=== PATIENT | male | born 1970 | race Caucasian/White ===

== ENCOUNTER 2020-10-12 18:43 | Emergency (ER) | payer OTHER ==
[2020-10-12 18:49] VITALS: RESP 18; TEMP 98.4
--- NOTE | 2020-10-12 19:04 | ED ---
Extremity Problem HPI - General Chief complaint: Extremity Problem,Nontraumatic Stated complaint: Lft knee pain Time Seen by Provider: 10/12/20 18:52 Source: patient Mode of arrival: ambulatory Limitations: no limitations - History of Present Illness Initial comments: 50-year-old male presenting to emergency Department with chief complaint of left knee pain. Patient reports this has been ongoing for past several weeks. States he is also feeling cold in the bilateral lower leg region. States it feels like walking and "Jell-O". He denies any injury to leg. Denies any skin discoloration on lung the toes or feet. No history of diabetes. No history of PAD. Denies taking medication to alleviate the symptoms. Denies any limited range of motion the left knee. Denies any numbness or tingling. - Related Data Home Medications Medication Instructions Recorded Confirmed Aspirin EC [Ecotrin Low Dose] 81 mg PO DAILY 10/12/20 10/12/20 Lisinopril [Prinivil] 10 mg PO DAILY 10/12/20 10/12/20 Allergies Allergy/AdvReac Type Severity Reaction Status Date / Time No Known Allergies Allergy Verified 10/12/20 20:09 Review of Systems ROS Statement: Those systems with pertinent positive or pertinent negative responses have been documented in the HPI. ROS Other: All systems not noted in ROS Statement are negative. Past Medical History Past Medical History: Hypertension History of Any Multi-Drug Resistant Organisms: None Reported Past Surgical History: Hernia Repair, Tonsillectomy Past Psychological History: No Psychological Hx Reported Smoking Status: Never smoker Past Alcohol Use History: None Reported Past Drug Use History: Marijuana General Exam Limitations: no limitations General appearance: alert, in no apparent distress Head exam: Present: atraumatic, normocephalic, normal inspection Eye exam: Present: normal appearance, PERRL, EOMI Pupils: Present: normal accommodation ENT exam: Present: normal exam, normal oropharynx, mucous membranes moist, TM's normal bilaterally, normal external ear exam Neck exam: Present: normal inspection, full ROM. Absent: tenderness, lymphadenopathy, thyromegaly Respiratory exam: Present: normal lung sounds bilaterally. Absent: respiratory distress, wheezes, rales Cardiovascular Exam: Present: regular rate, normal rhythm, normal heart sounds. Absent: systolic murmur, diastolic murmur Extremities exam: Present: normal inspection (No signs of limb ischemia in bilateral lower extremities. There is no skin discoloration or abnormal hair patterns along the left lower stomach. Sensation intact.), full ROM (Full range of motion of left knee), tenderness (Mild tenderness along the anterior patellar region of the left knee.), normal capillary refill, other (+2 dorsalis pedis and posterior tibialis. Strong palpable pulses bilateral lower extremities.). Absent: pedal edema, joint swelling, calf tenderness Back exam: Present: normal inspection, full ROM. Absent: tenderness, CVA tenderness (R), CVA tenderness (L), muscle spasm, paraspinal tenderness, vertebral tenderness Neurological exam: Present: alert, oriented X3, normal gait Psychiatric exam: Present: normal affect, normal mood. Absent: depressed, agitated Skin exam: Present: warm, dry, intact, normal color Course Vital Signs 10/12/20 10/12/20 10/12/20 18:47 20:04 20:35 Temperature 98.4 F 98.4 F Pulse Rate 63 75 58 L Respiratory 18 18 18 Rate Blood Pressure 132/77 142/92 128/89 O2 Sat by Pulse 98 99 97 Oximetry Medical Decision Making - Medical Decision Making 50-year-old male presenting to the emergency department with a chief complaint of left knee pain. On physical examination, there are no signs of any limb ischemia in the left lower extremity. His skin is warm but he subjectively feels that it is cold in bilateral lower legs. He has strong palpable pulses in bilateral upper extremities. He has full range of motion of the left knee with only mild tenderness along the anterior lateral aspect in the infrapatellar region. X-ray was reviewed with , along with laboratory results which show mild hyperkalemia of 5.3. EKG is showing sinus rhythm. Patient was advised to follow with an ignition specialist. Strict return parameters were thoroughly discussed patient is resting agreeable. Case discussed with physician. - Lab Data Result diagrams: 10/12/20 19:12 10/12/20 19:12 Lab Results 10/12/20 10/12/20 Range/Units 19:12 19:12 WBC 7.2 (3.8-10.6) k/uL RBC 4.83 (4.30-5.90) m/uL Hgb 13.6 (13.0-17.5) gm/dL Hct 40.9 (39.0-53.0) % MCV 84.8 (80.0-100.0) fL MCH 28.1 (25.0-35.0) pg MCHC 33.1 (31.0-37.0) g/dL RDW 14.1 (11.5-15.5) % Plt Count 219 (150-450) k/uL MPV 6.9 Neutrophils % 68 % Lymphocytes % 22 % Monocytes % 4 % Eosinophils % 3 % Basophils % 1 % Neutrophils # 4.9 (1.3-7.7) k/uL Lymphocytes # 1.6 (1.0-4.8) k/uL Monocytes # 0.3 (0-1.0) k/uL Eosinophils # 0.2 (0-0.7) k/uL Basophils # 0.1 (0-0.2) k/uL Sodium 137 (137-145) mmol/L Potassium 5.3 H (3.5-5.1) mmol/L Chloride 111 H (98-107) mmol/L Carbon Dioxide 26 (22-30) mmol/L Anion Gap 0 mmol/L BUN 17 (9-20) mg/dL Creatinine 1.13 (0.66-1.25) mg/dL Est GFR (CKD-EPI)AfAm 88 (>60 ml/min/1.73 sqM) Est GFR (CKD-EPI)NonAf 76 (>60 ml/min/1.73 sqM) Glucose 106 H (74-99) mg/dL Calcium 8.5 (8.4-10.2) mg/dL Total Bilirubin 0.4 (0.2-1.3) mg/dL AST 35 (17-59) U/L ALT 20 (4-49) U/L Alkaline Phosphatase 40 (38-126) U/L Total Protein 5.5 L (6.3-8.2) g/dL Albumin 3.2 L (3.5-5.0) g/dL Disposition Clinical Impression: Left knee pain Disposition: HOME SELF-CARE Condition: Stable Instructions (If sedation given, give patient instructions): Knee Pain (ED) Additional Instructions: Follow-up with orthopedics. Return to emergency department if symptoms worsen. Is patient prescribed a controlled substance at d/c from ED?: No Referrals: Mikhail Mendez MD [Primary Care Provider] - 1-2 days Aidan Mohan DO [Doctor of Osteopathic Medicine] - 1-2 days Time of Disposition: 20:26
[2020-10-12 19:18] LABS: Basophils # (A) 0.1 k/uL (0-0.2); Basophils % (A) 1 %; Eosinophils # (A) 0.2 k/uL (0-0.7); Eosinophils % (A) 3 %; HCT 40.9 % (39.0-53.0); HGB 13.6 gm/dL (13.0-17.5); Lymphocytes # (A) 1.6 k/uL (1.0-4.8); Lymphocytes % (A) 22 %; MCH 28.1 pg (25.0-35.0); MCHC 33.1 g/dL (31.0-37.0); MCV 84.8 fL (80.0-100.0); Mean Platelet Volume 6.9; Monocytes # (A) 0.3 k/uL (0-1.0); Monocytes % (A) 4 %; Neutrophils # (A) 4.9 k/uL (1.3-7.7); Neutrophils % (A) 68 %; Platelet Count 219 k/uL (150-450); RBC 4.83 m/uL (4.30-5.90); RDW 14.1 % (11.5-15.5); WBC 7.2 k/uL (3.8-10.6)
[2020-10-12 19:38] LABS: Potassium 5.3 mmol/L (3.5-5.1)
[2020-10-12 19:39] LABS: Albumin 3.2 g/dL (3.5-5.0); Calcium 8.5 mg/dL (8.4-10.2); Total Bilirubin 0.4 mg/dL (0.2-1.3); Total Protein 5.5 g/dL (6.3-8.2)
[2020-10-12 20:37] VITALS: BP 128/89; PULSE 58
--- NOTE | 2020-10-14 10:24 | XR ---
EXAMINATION TYPE: XR knee complete LT DATE OF EXAM: 10/12/2020 COMPARISON: None HISTORY: 50 year-old male left knee pain TECHNIQUE: 3 views FINDINGS: Infrapatellar knee joint effusion suggested. Increased density in Hoffa's fat. Mild degenerative spur ring patellofemoral compartment. No acute fracture, subluxation, or dislocation seen. IMPRESSION: Infrapatellar joint effusion versus synovitis. No acute osseous abnormality seen. If concern for inte rnal derangement, MRI can be performed.
== END 2020-10-12 20:36 | disposition home or self-care (01) ==
LOC: EC 18:43
DX: M25.562 Pain in left knee (principal); E87.5 Hyperkalemia; I10 Essential (primary) hypertension; Z79.82 Long term (current) use of aspirin; Z79.899 Other long term (current) drug therapy
CPT/HCPCS: 36415; 80053; 85025; 93005; 99284